=== PATIENT | male | born 1970 | race Caucasian/White ===

== ENCOUNTER 2021-05-17 08:29 | Emergency (ER) | payer SELFPAY ==
[2021-05-17] MEDS ORDERED: methylPREDNISolone Sodium Succinate 125 MG/2 ML SDV IVPUSH ONE (08:46)
--- NOTE | 2021-05-17 08:50 | EDM.PDOC ---
ED HPI GENERAL MEDICAL PROBLEM - General Chief Complaint: ENT Problem Stated Complaint: [facility] Time Seen by Provider: 05/17/21 08:48 Source of Information: Reports: Patient, EMS History Limitations: Reports: Physical Impairment (Difficulty speaking due to swelling in his tongue) - History of Present Illness INITIAL COMMENTS - FREE TEXT/NARRATIVE: 50-year-old male with diffuse edema of the tongue, fatigue, difficulty speaking and swallowing and generalized malaise. He did not show up for work for the past 2 days, so they checked on him and found him to not be feeling well so called the ambulance. He is mildly tachycardic but his vitals are otherwise stable, he has significant dysarthria due to the edematous tongue. He said this has happened to him in the past when he gets "strep throat". He has significant pain in the posterior throat with swallowing. No fevers or chills, no cough or shortness of breath. He is struggling with some ongoing open but healing sores on his right arm from getting "cut with metal at work". Duration: Day(s): (Sore throat for the past 3 days) Associated Symptoms: Reports: Other (Difficulty swallowing, weak). Denies: Fever/Chills, Shortness of Breath Throat Pain Score (Numeric/FACES): 8 - Related Data Allergies Allergy/AdvReac Type Severity Reaction Status Date / Time No Known Allergies Allergy Verified 05/17/21 08:42 Home Meds: Home Meds NK [No Known Home Meds] 05/17/21 [History] Past Medical History - Past Health History Medical/Surgical History: Denies Medical/Surgical History - Infectious Disease History Infectious Disease History: Reports: None ED ROS ENT - Review of Systems Review Of Systems: See Below Constitutional: Reports: Malaise. Denies: Fever, Chills HEENT: Reports: Throat Pain Respiratory: Denies: Shortness of Breath Cardiovascular: Denies: Chest Pain GI/Abdominal: Reports: No Symptoms Skin: Reports: Other (Numerous healing lesions on the right arm, there is an inflamed blistering lesion on the left thumb with surrounding erythema.) Neurological: Denies: Headache Psychiatric: Reports: Other (Long history of polysubstance abuse) ED EXAM, ENT - Physical Exam Exam: See Below Exam Limited By: No Limitations General Appearance: Alert, No Apparent Distress, Other (Looks uncomfortable but not distressed) Eye Exam: Right Eye: Normal Inspection (No jaundice) Mouth/Throat: Other (Patient has significant tongue edema, but the oral mucosa does not look significantly inflamed. He is tender under the mandible but there is no swelling or significant adenopathy) Head: Atraumatic Respiratory/Chest: No Respiratory Distress, Lungs Clear Cardiovascular: Regular Rate, Rhythm, Tachycardia Extremities: Other (Numerous superficial wounds in various stages of healing on his arms, needle tracks are present, he has an inflamed blistering lesion on his left thumb with surrounding erythema) Neurological: Alert, Oriented Psychiatric: Flat Affect Course - Vital Signs Last Recorded V/S: Last Vital Signs Temp 97.9 F 05/17/21 14:50 Pulse 100 05/17/21 14:50 Resp 16 05/17/21 14:50 BP 94/56 L 05/17/21 14:50 Pulse Ox 99 05/17/21 14:50 - Orders/Labs/Meds Orders: Active Orders 24 hr Category Date Time Status CULTURE STREP A CONFIRMATION [] Routine Lab 05/17/21 08:43 Results STREP SCRN A RAPID W CULT CONF [] Routine Lab 05/17/21 08:43 Results Labs: Laboratory Tests 05/17/21 05/17/21 05/17/21 Range/Units 08:43 09:09 09:09 WBC 23.8 H (4.5-11.0) K/uL RBC 5.51 (4.30-5.90) M/uL Hgb 14.5 (12.0-15.0) g/dL Hct 44.1 (40.0-54.0) % MCV 80 (80-98) fL MCH 26 L (27-31) pg MCHC 33 (32-36) % Plt Count 530 H (150-400) K/uL Neut % (Auto) 80.2 H (36-66) % Lymph % (Auto) 5.7 L (24-44) % Osborne % (Auto) 13.9 H (2-6) % Eos % (Auto) 0.0 L (2-4) % Baso % (Auto) 0.2 (0-1) % Sodium 137 L (140-148) mmol/L Potassium 4.7 (3.6-5.2) mmol/L Chloride 95 L (100-108) mmol/L Carbon Dioxide 32 (21-32) mmol/L Anion Gap 14.7 H (5.0-14.0) mmol/L BUN 18 (7-18) mg/dL Creatinine 1.0 (0.8-1.3) mg/dL Est Cr Clr Drug Dosing 102.75 mL/min Estimated GFR (MDRD) > 60 (>60) Glucose 98 (74-106) mg/dL Lactic Acid (0.4-2.0) mmol/L Calcium 9.8 (8.5-10.1) mg/dL Total Bilirubin 0.7 (0.2-1.0) mg/dL AST 16 (15-37) U/L ALT 25 (12-78) U/L Alkaline Phosphatase 83 (46-116) U/L Total Protein 8.5 H (6.4-8.2) g/dL Albumin 3.5 (3.4-5.0) g/dL Globulin 5.0 H (2.3-3.5) g/dL Albumin/Globulin Ratio 0.7 L (1.2-2.2) Urine Opiates Screen (NEGATIVE) Ur Oxycodone Screen (NEGATIVE) Urine Methadone Screen (NEGATIVE) Ur Propoxyphene Screen (NEGATIVE) Ur Barbiturates Screen (NEGATIVE) Ur Tricyclics Screen (NEGATIVE) Ur Phencyclidine Scrn (NEGATIVE) Ur Amphetamine Screen (NEGATIVE) U Methamphetamines Scrn (NEGATIVE) Urine MDMA Screen (NEGATIVE) U Benzodiazepines Scrn (NEGATIVE) U Cocaine Metab Screen (NEGATIVE) U Marijuana (THC) Screen (NEGATIVE) SARS-CoV-2 RNA (SUSAN) Negative (NEGATIVE) 05/17/21 05/17/21 Range/Units 13:50 14:52 WBC (4.5-11.0) K/uL RBC (4.30-5.90) M/uL Hgb (12.0-15.0) g/dL Hct (40.0-54.0) % MCV (80-98) fL MCH (27-31) pg MCHC (32-36) % Plt Count (150-400) K/uL Neut % (Auto) (36-66) % Lymph % (Auto) (24-44) % Osborne % (Auto) (2-6) % Eos % (Auto) (2-4) % Baso % (Auto) (0-1) % Sodium (140-148) mmol/L Potassium (3.6-5.2) mmol/L Chloride (100-108) mmol/L Carbon Dioxide (21-32) mmol/L Anion Gap (5.0-14.0) mmol/L BUN (7-18) mg/dL Creatinine (0.8-1.3) mg/dL Est Cr Clr Drug Dosing mL/min Estimated GFR (MDRD) (>60) Glucose (74-106) mg/dL Lactic Acid 1.8 (0.4-2.0) mmol/L Calcium (8.5-10.1) mg/dL Total Bilirubin (0.2-1.0) mg/dL AST (15-37) U/L ALT (12-78) U/L Alkaline Phosphatase (46-116) U/L Total Protein (6.4-8.2) g/dL Albumin (3.4-5.0) g/dL Globulin (2.3-3.5) g/dL Albumin/Globulin Ratio (1.2-2.2) Urine Opiates Screen Negative (NEGATIVE) Ur Oxycodone Screen Negative (NEGATIVE) Urine Methadone Screen Negative (NEGATIVE) Ur Propoxyphene Screen Negative (NEGATIVE) Ur Barbiturates Screen Negative (NEGATIVE) Ur Tricyclics Screen Negative (NEGATIVE) Ur Phencyclidine Scrn Negative (NEGATIVE) Ur Amphetamine Screen Presumptive positive H (NEGATIVE) U Methamphetamines Scrn Presumptive positive H (NEGATIVE) Urine MDMA Screen Negative (NEGATIVE) U Benzodiazepines Scrn Negative (NEGATIVE) U Cocaine Metab Screen Negative (NEGATIVE) U Marijuana (THC) Screen Negative (NEGATIVE) SARS-CoV-2 RNA (SUSAN) (NEGATIVE) Meds: Medications Discontinued Medications Generic Name Dose Route Start Last Admin Trade Name Freq PRN Reason Stop Dose Admin Sodium Chloride 1,000 mls @ 500 mls/hr 05/17/21 09:00 05/17/21 09:23 Normal Saline IV 999 mls/hr ASDIRECTED ANTONIO Infusion Clindamycin Phosphate 600 mg/ 54 mls @ 100 mls/hr 05/17/21 09:22 05/17/21 09:31 Sodium Chloride IV 05/17/21 09:54 100 mls/hr ONETIME ONE Administration Sodium Chloride 1,000 mls @ 1,000 mls/hr 05/17/21 11:15 05/17/21 12:10 Normal Saline IV 1,000 mls/hr ASDIRECTED ANTONIO Administration Sodium Chloride 70 mls @ 3 mls/sec 05/17/21 11:36 05/17/21 12:25 Normal Saline IV 05/17/21 11:37 3 mls/sec ONETIME ONE Administration Ampicillin Sodium/Sulbactam 100 mls @ 200 mls/hr 05/17/21 14:50 05/17/21 15:05 Sodium 3 gm/ Sodium Chloride IV 05/17/21 15:19 200 mls/hr ONETIME ONE Administration Iopamidol 100 ml 05/17/21 11:36 05/17/21 12:25 Iopamidol 612 Mg/Ml 100 Ml Bottle IV 100 ml . DIRECTED PRN Administration RADIOLOGY EXAM Methylprednisolone Sodium Succinate 125 mg 05/17/21 08:46 05/17/21 09:12 Methylprednisolone Sodium Succinate 125 Mg/2 Ml Sdv IVPUSH 05/17/21 08:47 125 mg ONETIME ONE Administration Sodium Chloride 10 ml 05/17/21 11:36 05/17/21 12:25 Sodium Chloride 0.9% 10 Ml Syringe FLUSH 10 ml ONETIME PRN Administration PER RADIOLOGY PROTOCOL - Re-Assessments/Exams Free Text/Narrative Re-Assessment/Exam: 05/17/21 09:00 This patient likely has bacterial infections in the wounds of his skin, and possibly strep throat as well. A rapid strep was obtained, an IV started and the patient will be given 125 mg of Solu-Medrol along with 1 L of fluid. CBC CMP was obtained and an antibiotic will be started when the strep test returns. 05/17/21 14:51 White count was 24,000, strep is negative and Covid is negative. CT with IV contrast was done of the airway and tongue, which revealed a very large multiloculated abscess of the floor of the mouth on the right side and into the right tongue. Images were sent to [facility] and reviewed by ENT, it was recommended that Unasyn be added to the clindamycin and the patient sent for urgent ENT referral. He was accepted at [facility]. 05/17/21 16:04 Lactic acid is 1.8 Departure - Departure Time of Disposition: 15:13 Disposition: DC/Tfer to [facility] 02 Clinical Impression: Abscess, tongue - Discharge Information Referrals: PCP,None [Primary Care Provider] - Forms: ED Department Discharge Care Plan Goals: Patient will be transferred to [facility] for ENT evaluation and further treatment of oral floor and tongue abscess. Sepsis Event Note (ED) - Evaluation Sepsis Screening Result: No Definite Risk - Focused Exam Vital Signs: Vital Signs Temp Pulse Resp BP Pulse Ox 05/17/21 14:50 97.9 F 100 16 94/56 L 99 05/17/21 08:42 98.0 F 120 H 18 108/70 95 05/17/21 08:32 98.0 F 120 H 18 108/70 95 - My Orders Last 24 Hours: My Active Orders 05/17/21 08:43 CULTURE STREP A CONFIRMATION [RM] Routine STREP SCRN A RAPID W CULT CONF [RM] Routine - Assessment/Plan Last 24 Hours: My Active Orders 05/17/21 08:43 CULTURE STREP A CONFIRMATION [RM] Routine STREP SCRN A RAPID W CULT CONF [RM] Routine
[2021-05-17] MEDS ORDERED: Sodium Chloride 0.9% 1,000 ML IV SCH ×2 (09:00→11:15)
[2021-05-17] MEDS ORDERED: Sodium Chloride 0.9% 10 ML Syringe FLUSH PRN (11:36)
[2021-05-17] MEDS ORDERED: Iopamidol 612 MG/ML 100 ML Bottle IV PRN (11:36)
--- NOTE | 2021-05-17 13:54 | CT ---
Soft Tissue Neck w Cont CLINICAL HISTORY: Throat pain and swelling COMPARISON: None TECHNIQUE: Multiple axial images were obtained of the neck with the IV infusion of iodinated contrast. Auto dosage reduction and iterative reconstruction techniques employed. FINDINGS: The nasopharynx there is significant soft tissue swelling in the floor the mouth. There is diffuse heterogeneity with multiple areas on the right and in the midline anteriorly of low attenuation surrounded by remanent of enhancement. The more anterior low attenuation area measures 3.7 x 1.3 x 1.8 cm. There are 2 contiguous fluid collections posteriorly on the right combined dimensions are 2.7 x 1.1 x 1.8 cm. There is a larger one posteriorly on the right measuring 1.3 x 1.5 x 2.4 cm. The prevertebral soft tissues are normal. There is some heterogeneity through the base of the tongue. Pelvis has a normal contour. Epiglottis has a normal contour. There is mass effect on the right impressing on the vallecula and right. Piriform sinus. There is some mass effect on the mid pharynx causing some narrowing Vocal cords have a normal contour. The subglottic airway has a normal course and contour. The osseous structures are normal. The thyroid gland has a normal contour.. The submandibular glands have a normal contour. Parotid glands appear normal. There is some right neck lymphadenopathy IMPRESSION: Multiple abscesses or large multi locular abscess in the floor the mouth mainly to the right of midline. This extends into the base of the tongue. There is mass effect on the right pharynx. Pharyngeal tissues some mild narrowing of the airway at the mid pharyngeal level. No osseous lesion is seen. There are some enlarged jugular lymph nodes on the right which are most likely reactive
[2021-05-17] MEDS ORDERED: Ampicillin/Sulbactam Na 1.5 GM in Sodium Chloride 0.9% 50 ML IV ONE (14:40)
[2021-05-17] MEDS ORDERED: Ampicillin/Sulbactam Na 3 GM in Sodium Chloride 0.9% 100 ML IV ONE (14:50)
== END 2021-05-17 15:36 ==
LOC: JP.ED 08:29
DX: K14.0 Glossitis (principal); Z20.822 Contact with and (suspected) exposure to COVID-19
CPT/HCPCS: 36415; 70491; 80053; 80305; 83605; 85025; 87081; 87635; 87880; 96365; 96367; 96375; 99285; J0295; J2930; J3490; J7030; Q9967; U0002

== ENCOUNTER 2023-07-17 01:07 | Emergency (ER) | payer OTHER | END 2023-07-17 01:40 | LOC: JP.ED 01:07 | DX: L92.8 Other granulomatous disorders of the skin and subcutaneous tissue (principal); S61.402D Unspecified open wound of left hand, subsequent encounter; S61.401D Unspecified open wound of right hand, subsequent encounter; S61.502D Unspecified open wound of left wrist, subsequent encounter; S61.501D Unspecified open wound of right wrist, subsequent encounter; Z02.89 Encounter for other administrative examinations | CPT/HCPCS: 99283 ==